=== PATIENT | male | born 1995 | race Two or more races ===

== ENCOUNTER 2017-10-30 22:44 | Emergency (ER) | payer SELFPAY ==
[~2017-10-30] VITALS: Ht 175.3 cm; Wt 77.1 kg
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
[2017-10-30] MEDS ORDERED: IBUPROFEN 400 MG TABLET ONE (23:17)
[2017-10-30] MEDS ORDERED: IBUPROFEN 400 MG TABLET PO ONE (23:30)
--- NOTE | 2017-10-30 23:31 | NUR ---
Patient discharged to home in stable condition. Written and verbal after care instructions given. Patient verbalizes understanding of instruction. Patient is ambulatory with steady gait, no further complaints.
[2017-10-30 23:32] VITALS: BP 135/84
== END 2017-10-30 23:32 | disposition home or self-care (01) ==
LOC: ER 22:49
DX: S60.042A Contusion of left ring finger without damage to nail, initial encounter (principal); W23.0XXA Caught, crushed, jammed, or pinched between moving objects, initial encounter; Y93.89 Activity, other specified; Y92.89 Other specified places as the place of occurrence of the external cause; Y99.8 Other external cause status
CPT/HCPCS: 73130; 99284; A4606; Z7610